=== PATIENT | male | born 1965 | race Caucasian/White ===

== ENCOUNTER → 2016-06-21 | Outpatient (CLI) | payer OTHER ==
[~2016-06-21] MED LIST: DULERA 100 MCG/13 GM; KEFLEX500 MG PO; SINGULAIR
--- NOTE | ~2016-06-21 | CR63 ---
[facility]. [facility] A Service of [facility] & [facility] / [facility] RADIOLOGY TEXT RESULTS PATIENT: OMER VERDUGO LOCATION: [facility] : 65 UNIT #: [id number] AGE: [address]: Jessica Donato SEX: M ORDER DR: [id number] [place] [id number] O MR#: [id number] Acc #: [id number] NAME: OMER VERDUGO : 1965 SEX: M STUDY DATE/TIME: 06/21/2016 16:25 UNIT: SRAD ROOM: STUDY DESCRIPTION: CR Chest 2 View Attending Physician: Jessica Donato A.P.R.N. Referring Physician: Jessica Donato A.P.R.N. Ordering Physician: Jessica Donato A.P.R.N. Primary Care Physician: Ashish Norwood M.D. MEDICAL IMAGING REPORT This report is preliminary unless electronic signature is present. EXAM Chest, 2 views. DATE OF EXAM 06/21/2016 COMPARISON None. HISTORY Asthma and shortness of air for the last 2 months. FINDINGS 2 views of the chest were obtained. No acute cardiopulmonary disease. Lungs are relatively well aerated. The heart and mediastinum are within normal limits. Bones do not demonstrate any significant abnormality. Dictated by... Rody Tao M.D. THIS IS AN ELECTRONICALLY VERIFIED REPORT Rody Tao M.D. at 06/22/2016 3:41 PM CPR/jt TD: 06/21/2016 21:03 JOB #: [id number] MEDICAL IMAGING REPORT
== END | disposition home or self-care (01) ==
LOC: SRAD 16:18
DX: J45.40 Moderate persistent asthma, uncomplicated (principal); J30.89 Other allergic rhinitis; J38.5 Laryngeal spasm; J30.1 Allergic rhinitis due to pollen; R06.00 Dyspnea, unspecified; K21.0 Gastro-esophageal reflux disease with esophagitis
CPT/HCPCS: 71020